=== PATIENT | female | born 1960 | race Caucasian/White ===

== ENCOUNTER 2018-06-05 15:32 | Inpatient (IN) | payer BC, OTHER ==
--- NOTE | 2018-06-05 16:19 | PDOC.FPRHP ---
- History of Present Illness Chief Complaint: passing out History of Present Illness: Pt presents from [place] [facility] with complaint of syncope x3. Pt had prodrome of dizziness and Pt was out for only 30 seconds. No one witnessed fall. Never happened before. Never had any seizure. Before syncope feels like something isn' t right and next thing she knows they are waking her up. no loss of urine or stool on episodes, no biting of tongue. Witnessed episodes did not have any convulsions. Episode lasted 30 seconds at hospital ER and third was in transit to [place]. Pt reports feeling in haze. Denies any weakness, slurred speech. Denies any numbness. Denies CP or SOB. Brain CT at outside ER showed hematoma on scalp Pt reports not drinking a lot of water yesterday. Pt reports feeling like passing out in past but never did. Of note while pt was being evaluated she had another syncope. Pt stopped talking and did not move. Her HR dropped to 40 and then to asystole on the monitor. Pt was pulse-less for 2-3 seconds and then spontaneously came to before a code was activated. ED Course: EGK- normal sinus rhythm. Cards consulted from ED and pt moved directly to laboratory coordinator for pacer placement. - Allergies/Adverse Reactions Allergies Allergy/AdvReac Type Severity Reaction Status Date / Time morphine Allergy Verified 06/05/18 16:52 Penicillins Allergy Verified 06/05/18 16:52 - Home Medications Medication Instructions Recorded Confirmed Type Aspirin [Ecotrin] 81 mg PO DAILY 06/05/18 06/05/18 History Biotin [Hard Nails] 2,500 mcg PO DAILY 06/05/18 06/05/18 History Bisoprolol Fumarate 5 mg PO HS 06/05/18 06/05/18 History Calcium Carbonate [Calcium] 600 mg PO DAILY 06/05/18 06/05/18 History Ezetimibe [Zetia] 10 mg PO DAILY 06/05/18 06/05/18 History Lisinopril/Hydrochlorothiazide 1 tablet PO DAILY 06/05/18 06/05/18 History [Lisinopril-Hctz 20-12.5 mg Tab] [place]-3/DHA/EPA/Fish Oil [Fish Oil 1 cap PO DAILY 06/05/18 06/05/18 History 1,400 mg Softgel] Omeprazole 20 mg PO DAILY 06/05/18 06/05/18 History Pravastatin Sodium 80 mg PO HS 06/05/18 06/05/18 History - History PMHx: HTN, Hyperlipidemia PSHx: tubal FHx: Brother- Diabetic Father- RICHARD Social: Denies any caffiene intake, Social drinking, Denies any smoking - Review of Systems General: denies: fever/chills, fatigue Eyes: denies: eye pain, vision changes ENT: denies: nasal congestion, rhinorrhea Respiratory: denies: cough, congestion, shortness of breath Cardiovascular: denies: chest pain, palpitation Gastrointestinal: denies: nausea, vomiting Genitourinary: denies: incontinence, dysuria Skin: denies: rashes, lesions Musculoskeletal: denies: pain, tenderness Neurological: reports: syncope. denies: numbness Psychological: denies: anxiety, depression - Vital signs BP: [146/88] HR: [101] RR: [14] Tmax: [98.5] Pox: [98]% on [ra] Wt: [83kg] - Physical Exam Constitutional: NAD, awake, alert and oriented HEENT: EOMI, conjunctiva clear, grossly normal vision, grossly normal hearing Neck: supple, trachea midline Chest: no-tender to palpation Heart: RRR, normal S1/S2 Lungs: CTAB, no respiratory distress Abdomen: soft, non-tender Musculoskeletal: normal structure, normal tone Neurological: no focal deficit, CN II-XII intact, normal sensation, DTRs 2+ Skin: no rash/lesions, good turgor Heme/Lymphatic: no unusual bruising or bleeding, no purpura Psychiatric: normal mood and affect, good judgment and insight, intact recent and remote memory FMR H&P: A/P - Problem List (1) Symptomatic bradycardia Current Visit: Yes Status: Acute Code(s): R00.1 - BRADYCARDIA, UNSPECIFIED (2) Hypertension Current Visit: Yes Status: Acute Code(s): I10 - ESSENTIAL (PRIMARY) HYPERTENSION (3) Hyperlipidemia Current Visit: Yes Status: Acute Code(s): E78.5 - HYPERLIPIDEMIA, UNSPECIFIED - Plan 57yo F presents with syncope x4 and observed severe bradycardia Symptomatic bradycardia A- Syncope was observed in room with HR decreasing below 20bpm. This does not appear to be seizure. Cards is consulted and plans for emergent transport to laboratory coordinator for placement of pacemaker. Case has been discussed with Dr. Ogden. Trops are negative in [place] and at [facility] thus far. Electrolytes wnl in [place]. P- Pacemaker placement per cards - admit to CCU - f/u on cards recs - will get ABG to r/u acidemia - will get prolactin to help rule out seizure HTN -will hold antihypertensives for now HLD -home meds Dispo: inpt, at least two midnights Diet: npo for laboratory coordinator Code: full code FMR H&P: Upper Level - Pertinent history I was present in the room with Dr. Pérez when he took pt history. I agree with his above dictation. Pt reports having syncopal episode early this morning where she was out for 30 secs. Pt had 2 more episodes, 1 at [facility] [place] and 1 en route to [facility]. Pt denied any headache vision changes, numbness or tingling. Phys Exam Neuro: CN 2-12 grossly intact. No focal neuro defecit Cardio: RRR, no mumur or gallop - Pertinent findings While in the room pt had episode where she said she felt wierd and then pt passed out. HR went into 40's, 20's and then asystole for a 3 sec period. Pt then came too and HR returned to normal sinus rhythm Reviewed pt labs drawn at [facility] ER. Did not see any abnormality on CBC, BMP. They took two trops which were normal. CT Head taken there shows no acute intracranial abnormality. - Plan Date/Time: 06/05/18 2517 IJose Luis have evaluated this patient and agree with findings/plan as outlined by internist resident. Pertinent changes/additions are listed here. Symptomatic bradycardia Syncope was observed in room with HR decreasing below 20bpm. This does not appear to be seizure. Cardiology consulted- Dr. Sanchez- plans to take pt to laboratory coordinator and use put in venous pacer. - admit to CCU. follow recs. -Pulmology- Dr. Ogden consulted- Advised to get ABG as possible blood gas abnormality could be causing adriano - will get prolactin to help rule out seizure -Pt had 2 neg trops in [place] and 1 neg here at [facility]. HTN -will hold antihypertensives for now HLD -home meds Attending Addendum - Attending Addendum Date/Time: 06/05/18 1830 I personally evaluated the patient and discussed the management with Dr. Pérez /Artur. I agree with the History, Examination, Assessment and Plan documented above with any addition or exceptions noted below. Patient here with acute onset of multiple syncopal episodes that began today with some transient pre-syncopal symptoms immediately preceding. On arrival to our ER, she had another episode associated with profound bradycardia and possibly asystole for 3-4 seconds per telemetry monitoring. Prior and post EKG revealed no abnormalities. She is being admitted for severe symptomatic bradydysrhythmia. Cardiology has been consulted and is taking patient to laboratory coordinator. She will be admitted to CCU afterwards. She otherwise has no complaints. Will control HTN and await further labs and cardiology recs. Labs at [facility] were reviewed and were overtly normal.
[2018-06-05 18:16] LABS: Lavender RECEIVED; Red RECEIVED
--- NOTE | 2018-06-05 19:33 | PRG ---
DATE OF SERVICE: 06/05/2018 I noticed on the computer list that there was a consult to Neurology on Ady. I went to see her, but she was not in her room. The nurses told me that she has been sent for pacemaker. I advised if Neurology consult is needed to consult Neurology in the a.m. Job ID: [id number]
[2018-06-05 19:54] VITALS: BMI 28.7
--- NOTE | 2018-06-05 23:56 | CON ---
DATE OF CONSULTATION: 06/05/2018 HISTORY OF PRESENT ILLNESS: Ms. Garsia is a 57-year-old female from [place]. She was getting ready to leave to go back home from [place]. She had syncope. She had complete syncope, fell and hit her head and had a knot on her head. She was evaluated in the [place] [facility] and they were getting ready to send her home when she had another episode. Apparently, she had asystole, she tells me. She subsequently has had a temporary pacemaker placed. She had multiple other episodes prior to pacemaker implantation. She reports a distant history of similar episodes, but not of this severity. She never had complete syncope. PAST MEDICAL HISTORY: Remarkable for lipid disorder and hypertension. SOCIAL HISTORY: She is a nonsmoker, nondrinker, and denies drug use. FAMILY HISTORY: Positive for diabetes. Negative for lung disease in early age. REVIEW OF SYSTEMS: 10 points otherwise negative. She is currently in paced rhythm and said she feels fine. PHYSICAL EXAMINATION: VITAL SIGNS: She is afebrile. Heart rate is 80, respiratory rate is 18, and blood pressure 140/86. HEENT: Pupils are equal. Sclerae are anicteric. NECK: Supple. LUNGS: Clear. HEART: Regular rhythm. No S3. ABDOMEN: Soft and nontender. EXTREMITIES: Without clubbing, cyanosis, or edema. LABORATORY DATA: There was no lab done here. IMPRESSION: Sinus arrest/sinus pauses, now with a temporary pacer. She has no history of prior events. She had no symptoms to suggest this was secondary to ischemia. We will follow while she is in the hospital. She is clinically stable at the time of this dictation. Critical care time is 35 minutes. Job ID: [id number] [facility]
[2018-06-06 06:07] LABS: Anion Gap 14 mmol/L (10-20); BUN (Urea Nitrogen) 13 mg/dL (9.8-20.1); Calc. Creatinine Clearance 108 mL/min (70-130); Calcium 9.8 mg/dL (7.8-10.44); Carbon Dioxide 25 mmol/L (22-29); Chloride 100 mmol/L (98-107); Estimated GFR-MDRD 80; Glucose 108 mg/dL (70-105); Potassium 3.2 mmol/L (3.5-5.1); Sodium 136 mmol/L (136-145)
--- NOTE | 2018-06-06 07:11 | PDOC.FM ---
- Subjective Subjective: Patient seen resting comfortably this morning following placement of transvenous pacer yesterday. Denies new symptoms and notes that previous symptoms have resolved. No acute events over night. - Objective MAR Reviewed: Yes Vital Signs & Weight: Vital Signs (12 hours) Temp Pulse Resp BP Pulse Ox 06/06/18 04:00 98.8 F 06/06/18 00:00 98.7 F 98 06/05/18 21:00 99.3 F 06/05/18 20:00 100 06/05/18 19:51 99.3 F 82 20 142/83 H 100 Weight Admit Weight 80.6 kg Weight 80.6 kg Most Recent Monitor Data Heart Rate from ECG 68 NIBP 131/80 NIBP BP-Mean 97 Respiration from ECG 15 SpO2 99 I&O: 06/05/18 06/06/18 06/07/18 06:59 06:59 06:59 Intake Total 0 Output Total 900 Balance -900 Result Diagrams: 06/06/18 04:29 <Mono Nava - Last Filed: 06/06/18 07:09> - Objective Vital Signs & Weight: Vital Signs (12 hours) Temp Pulse Ox 06/06/18 08:00 99 F 06/06/18 07:17 99 06/06/18 04:00 98.8 F 06/06/18 00:00 98.7 F 98 Weight Admit Weight 80.6 kg Weight 80.6 kg Most Recent Monitor Data Heart Rate from ECG 78 NIBP 166/85 NIBP BP-Mean 112 Respiration from ECG 18 SpO2 99 I&O: 06/05/18 06/06/18 06/07/18 06:59 06:59 06:59 Intake Total 0 0 Output Total 900 0 Balance -900 0 Result Diagrams: 06/06/18 04:29 <Jorge Cervantes - Last Filed: 06/06/18 09:34> Phys Exam - Physical Examination Constitutional: NAD HEENT: moist MMs, sclera anicteric Neck: no JVD Respiratory: clear to auscultation bilateral Cardiovascular: RRR, no significant murmur Gastrointestinal: soft, non-tender, no distention Musculoskeletal: no edema R femoral venous catheter in place. Non tender Neurological: moves all 4 limbs Psychiatric: A&O x 3 Skin: no rash <Mono Nava - Last Filed: 06/06/18 07:09> Dx/Plan (1) Symptomatic bradycardia Code(s): R00.1 - BRADYCARDIA, UNSPECIFIED Status: Acute (2) Hyperlipidemia Code(s): E78.5 - HYPERLIPIDEMIA, UNSPECIFIED Status: Chronic (3) Hypertension Code(s): I10 - ESSENTIAL (PRIMARY) HYPERTENSION Status: Chronic - Plan Plan: 1. Symptomatic Bradycardia - s/p transvenous pacer placement with plan to place permanent pacer - currently asymptomatic with HR in the 70s - Cards following 2. HTN - Continue home meds, controlled here 3. HLD - continue home meds Dispo: patient currently stable, will await cardiology recommendations for definitive treatment. <Mono Nava - Last Filed: 06/06/18 07:09> (1) Symptomatic bradycardia Code(s): R00.1 - BRADYCARDIA, UNSPECIFIED Status: Acute (2) Hypertension Code(s): I10 - ESSENTIAL (PRIMARY) HYPERTENSION Status: Chronic (3) Hyperlipidemia Code(s): E78.5 - HYPERLIPIDEMIA, UNSPECIFIED Status: Chronic <Jorge Cervantes - Last Filed: 06/06/18 09:34> Attending Addendum - Attending Addendum Date/Time: 06/06/18932 I personally evaluated the patient and discussed the management with Dr. Nava. I agree with the History, Examination, Assessment and Plan documented above with any addition or exceptions noted below. Patient doing well and no further episodes after transvenous pacing. Awaiting further cardiology recs and possible EP consult for permanent pacemaker implantation. Labs and vitals stable. <Jorge Cervantes - Last Filed: 06/06/18 09:34>
[2018-06-06] MEDS ORDERED: Lisinopril/Hydrochlorothiazide 20 mg/12.5 mg Tablet PO SCH ×2 (09:00→09:45)
[2018-06-06] MEDS: Dextrose 5 %-0.45 % NaCl 1,000 ML IV SCH ×2 (09:00→22:40)
--- NOTE | 2018-06-06 11:01 | CON ---
CRITICAL CARE NOTE: time 1 hour and 30 minutes. HISTORY; The patient presents for evaluation of syncopy. She has had several previous episodes where she nearly lost consciousness. Today, the patient passed out on several occasions. She was found to have prolonged pauses on telemetry monitoring. She denied any chest discomfort or dyspnea. The patient denies any PND or orthopnea. PAST MEDICAL HISTORY : Hypertension SOCIAL : Non-smoker. PHYSICAL EXAM; Well developed women in NAD. HEENT; unremarkable. NECK; No JVD LUNGS; Clear to auscultation. HEART ; normal S1 and S2 no murmurs. ABDOMEN; not distended. EXTREMITIES ; no edema. EKG; Normal sinus rhythm with prolonged sinus arrest on telemetry monitoring. IMPRESSION; Syncopy due to prolonged sinus arrest. PLAN; Emergent temporary pacemaker placement. Job ID: [id number] [facility]
[2018-06-06] MEDS ORDERED: CEFAZOLIN 2 GM/50 ML BAG ONE (12:18)
[2018-06-06] MEDS ORDERED: Lidocaine 1% (PF) 30 ML VIAL ONE (12:18)
[2018-06-06] MEDS ORDERED: Gentamicin 80 MG/2 ML VIAL ONE (12:18)
[2018-06-06] MEDS ORDERED: CEFAZOLIN 1 GM VIAL ONE (12:18)
--- NOTE | 2018-06-06 12:22 | PRG ---
DATE OF SERVICE: 06/06/2018 SUBJECTIVE: Yaima Garsia is tentatively on schedule for permanent pacemaker today. She had no events overnight. Hopefully, she will be able to head home this evening OBJECTIVE: VITAL SIGNS: Heart rate is 82, blood pressure 130/76, and respiratory rate 17. GENERAL: She is lying flat in bed. She is in no distress. LUNGS: Clear. HEART: Regular rhythm. ABDOMEN: Soft. LABORATORY DATA: Electrolytes are normal except for potassium of 3.2 today. IMPRESSION: Status post sinus arrest with syncope. PLAN: Pacemaker. Hopefully, she will go home this evening. We will sign off. Is having no acute respiratory issues. Job ID: [id number]
[2018-06-06] MEDS ORDERED: Iopamidol 370 76% 50 ML VIAL FS ONE (12:52)
[2018-06-06] MEDS ORDERED: Fentanyl 100 MCG/2 ML VIAL ONE (13:04)
[2018-06-06] MEDS ORDERED: Midazolam HCl 2 mg/2 ml Vial ONE (13:05)
[2018-06-06] MEDS ORDERED: HYDROcodone/Acetaminophen 5/325 mg Tablet PO PRN ×2 (16:00)
[2018-06-06] MEDS ORDERED: Acetaminophen/Codeine 30-300mg Tablet PO PRN ×2 (16:00)
--- NOTE | 2018-06-06 16:33 | RAD ---
SUPINE FRONTAL CHEST RADIOGRAPH: DATE: 06/06/2018. History Pacemaker placement. FINDINGS: Supine imaging is provided, limiting assessment for pneumothorax and pleural fluid. Lungs appear emma ar. Dual-lead transvenous pacing device present, inserted via left subclavian approach, with leads o verlying the region of the right atrium and the right ventricle. IMPRESSION: Dual-lead transvenous pacing device as detailed above. POS: [facility]
[2018-06-06] MEDS ORDERED: Ondansetron PF 4 MG/2 ML Vial IVP PRN (18:17)
--- NOTE | 2018-06-06 19:00 | OP ---
DATE OF PROCEDURE: 06/06/2018 INDICATIONS FOR PROCEDURE: Sinus node dysfunction irreversible with symptoms of syncope recurrence. No reversible cause. MEDICATIONS: Versed and fentanyl to effect. COMPLICATIONS: None. Ancef 2 g IV piggyback provided. DESCRIPTION OF PROCEDURE: After an informed consent was obtained, the patient was brought to the electrophysiology laboratory. The patient was prepped and draped in the usual sterile fashion. A venogram demonstrates patency of the subclavian system. Using lidocaine, skin overlying the left infraclavicular fossa was locally anesthetized and using a modified Seldinger technique with the first rib approach, central access was achieved on 2 occasions with the advancement of J-wires in the central circulation. Using #15 blade, a skin incision was made and using a combination of sharp, blunt, and Bovie dissection, a pacemaker pocket was formed and the J-wires were brought to the base of the pocket. Using a 7-Fijian dilator sheath, central access was achieved and both leads were placed directly in the central circulation. The sheaths were removed. The ventricular lead was advanced to the outflow tract and brought toward the right ventricular apical region, then moved up the septum so it is a more of apical septal location. Adequate sensing and pacing parameters were noted and the lead was secured with silk ties. The right atrial lead was placed in right atrial appendage. Adequate sensing and pacing parameters were noted. The leads were secured with silk ties. The pocket was copiously irrigated. The temporary ventricular lead was removed under fluoroscopic guidance and then the pocket was copiously irrigated. The device was attached. The device was placed in the pocket and secured. The pocket was re-irrigated and closed with 2 layers of Vicryl and skin adhesive. The patient tolerated the procedure well. FINDINGS: The device implanted is the [employer] Adali XT DR, serial #[id number]. The atrial lead is 5076-45, serial #[id number], and the ventricular lead is 5076-52 serial #[id number]. The atrial electrogram was 7.8 mV, impedance of 739, threshold 0.6 at 0.5. The ventricular electrogram is 10 mV, impedance of 1225, threshold 0.8 at 0.5. Device will be programed in the MVP mode, lower rate of 60, upper rate of 140 beats per minute. Mode switch was available. No rate responsive pacing is required today. No complication seen. ESTIMATED BLOOD LOSS: Less than 5 mL. IMPRESSION: Successful dual-chamber permanent pacemaker for symptomatic sinus node dysfunction with repetitive pauses that are nonreversible and associated with syncope. RECOMMENDATIONS: Anticipate discharge in the morning after pacemaker evaluation. Follow up in [address] French Bahena in [place]. The patient has been given contact information. Job ID: [id number]
[2018-06-06] MEDS ORDERED: Atorvastatin Calcium 20 MG TAB PO SCH (21:00)
[2018-06-06] MEDS ORDERED: Bisoprolol Fumarate 5 MG TAB PO SCH (21:00)
[2018-06-06] MEDS: Cephalexin 250 MG CAP PO SCH (22:00)
[2018-06-07] MEDS ORDERED: Sodium Chloride 0.9% 1,000 ML IV SCH ×2 (07:00→12:00)
--- NOTE | 2018-06-07 07:48 | PDOC.FM ---
- Subjective Subjective: Patient seen sitting up in chair this morning in no acute distress. She complains of nausea following her procedure yesterday. Denies chest pain or continued syncopal episodes. No acute events over night. - Objective MAR Reviewed: Yes Vital Signs & Weight: Vital Signs (12 hours) Temp Pulse Ox 06/07/18 04:00 98.0 F 06/07/18 00:00 97.9 F 06/06/18 20:00 93 L Weight Admit Weight 80.6 kg Weight 80.6 kg Most Recent Monitor Data Heart Rate from ECG 120 NIBP 95/70 NIBP BP-Mean 78 Respiration from ECG 13 SpO2 96 I&O: 06/06/18 06/07/18 06/08/18 06:59 06:59 06:59 Intake Total 0 1164 Output Total 900 950 Balance -900 214 Result Diagrams: 06/06/18 04:29 <Mono Nava - Last Filed: 06/07/18 07:46> - Objective Vital Signs & Weight: Vital Signs (12 hours) Temp Pulse BP 06/07/18 09:42 82 114/66 06/07/18 04:00 98.0 F 06/07/18 00:00 97.9 F Weight Admit Weight 80.6 kg Weight 80.6 kg Most Recent Monitor Data Heart Rate from ECG 97 NIBP 125/80 NIBP BP-Mean 95 Respiration from ECG 16 SpO2 96 I&O: 06/06/18 06/07/18 06/08/18 06:59 06:59 06:59 Intake Total 0 1164 Output Total 900 950 Balance -900 214 Result Diagrams: 06/06/18 04:29 <Jorge Cervantes - Last Filed: 06/07/18 09:46> Phys Exam - Physical Examination Constitutional: NAD HEENT: moist MMs Neck: no JVD Respiratory: clear to auscultation bilateral Cardiovascular: RRR, no significant murmur Gastrointestinal: soft, non-tender, no distention Musculoskeletal: no edema Neurological: moves all 4 limbs Psychiatric: normal affect, A&O x 3 Deviation from normal: Incision on L upper chest clean and dry. Mild TTP and erythema <Mono Nava - Last Filed: 06/07/18 07:46> Dx/Plan (1) Symptomatic bradycardia Code(s): R00.1 - BRADYCARDIA, UNSPECIFIED Status: Resolved (2) Hyperlipidemia Code(s): E78.5 - HYPERLIPIDEMIA, UNSPECIFIED Status: Chronic (3) Hypertension Code(s): I10 - ESSENTIAL (PRIMARY) HYPERTENSION Status: Chronic - Plan Plan: 1. Symptomatic Bradycardia - s/p permanent dual chamber pacemaker placement on 06/06 - currently asymptomatic with HR in the 90-100 range - Cards and EP following 2. HTN - Continue home meds, controlled here 3. HLD - continue home meds Dispo: patient currently stable, will discharge pending recommendation from EP and cardiology <Mono Nava - Last Filed: 06/07/18 07:46> (1) Symptomatic bradycardia Code(s): R00.1 - BRADYCARDIA, UNSPECIFIED Status: Resolved (2) Hypertension Code(s): I10 - ESSENTIAL (PRIMARY) HYPERTENSION Status: Chronic (3) Hyperlipidemia Code(s): E78.5 - HYPERLIPIDEMIA, UNSPECIFIED Status: Chronic <Jorge Cervantes - Last Filed: 06/07/18 09:46> Attending Addendum - Attending Addendum Date/Time: 06/07/18 0945 I personally evaluated the patient and discussed the management with Dr. Nava. I agree with the History, Examination, Assessment and Plan documented above with any addition or exceptions noted below. Patient stable from cardiac standpoint. Complains of some nausea overnight and has some mildly low BP with headache. Our team not notified overnight about her low BP or need for trendelenburg positioning by nursing staff. Will give bolus of IVF and reassess. Awaiting further cardiology recs. Possible d/c later today if feeling ok. <Jorge Cervantes - Last Filed: 06/07/18 09:46>
[2018-06-07] MEDS ORDERED: Ezetimibe 10 MG TAB PO SCH (09:00)
[2018-06-07] MEDS ORDERED: Aspirin 81 mg Enteric Coated Tablet PO SCH (09:00)
[2018-06-07] MEDS ORDERED: Lisinopril/Hydrochlorothiazide 20 mg/12.5 mg Tablet PO SCH ×2 (09:00)
[2018-06-07] MEDS: Cephalexin 250 MG CAP PO SCH ×2 (09:42→15:30)
[2018-06-07 09:43] VITALS: BP 114/66
[2018-06-07] MEDS: Dextrose 5 %-0.45 % NaCl 1,000 ML IV SCH (11:56)
[2018-06-07 12:43] VITALS: TEMP 98.6
[2018-06-07 12:53] LABS: Anion Gap 14 mmol/L (10-20); BUN (Urea Nitrogen) 14 mg/dL (9.8-20.1); Calc. Creatinine Clearance 105 mL/min (70-130); Carbon Dioxide 24 mmol/L (22-29); Chloride 101 mmol/L (98-107); Estimated GFR-MDRD 78; Glucose 119 mg/dL (70-105); Potassium 3.2 mmol/L (3.5-5.1); Sodium 136 mmol/L (136-145)
[2018-06-07 13:30] LABS: Hemoglobin 12.9 g/dL (12.0-16.0); Mean Corpuscular HGB CONC 33.5 g/dL (32.0-36.0); Mean Corpuscular Hemoglobin 31.1 pg (27.0-31.0); Mean Corpuscular Volume 92.9 fL (78.0-98.0); Mean Platelet Volume 8.3 fL (7.4-10.4); Platelet Count 200 thou/uL (130-400); RBC Distribution Width 11.1 % (11.5-14.5); Red Blood Cell (RBC) Count 4.16 mill/uL (4.20-5.40); White Blood Cell (WBC) Count 7.6 thou/uL (4.8-10.8)
[2018-06-07 13:31] LABS: Band 6 % (5-11); Lymphocytes 20 % (21-51); MDiff Complete? YES; Monocytes 2 % (0-10); Neutrophil 72 % (42-75); PLT Morphology Comment Appears Adequate; RBC Morphology Normal
--- NOTE | 2018-06-09 12:25 | DIS ---
DATE OF ADMISSION: 06/05/2018 DATE OF DISCHARGE: 06/07/2018 ADMITTING/DISCHARGE ATTENDING: Jorge Cervantes MD CONSULTS: Pulmonology, Griffin Ogden MD; Cardiology, Juan Sanchez MD; and Electrophysiology, French Valdivia MD PROCEDURES: Temporary transvenous pacemaker on 06/05/2018 and permanent pacemaker on 06/05/2018. Echocardiogram on 06/06/2018 with EF of 50% to 55% , left ventricular size normal, structurally normal mitral valve, structurally normal aortic valve, and mild tricuspid regurgitation. Chest x-ray on 06/06/2018 shows dual-lead transvenous pacing device in left subclavian. ADMITTING DIAGNOSIS: Symptomatic bradycardia. SECONDARY DIAGNOSES: Include, 1. Syncopal episode. 2. Hypertension. 3. Hyperlipidemia. DISCHARGE MEDICATIONS: 1. Omeprazole 20 mg p.o. daily. 2. Aspirin 81 mg p.o. daily. 3. Pravastatin 80 mg p.o. at bedtime. 4. Lisinopril/hydrochlorothiazide 20/12.5 mg one p.o. daily. 5. Bisoprolol 5 mg p.o. at bedtime. 6. Fish oil 1400 mg softgel 1capsule p.o. daily. 7. Zetia 10 mg p.o. daily. 8. Calcium carbonate 600 mg p.o. daily. 9. Biotin 2500 mcg p.o. daily. 10. Keflex 250 mg p.o. t.i.d. x4 days. HOSPITAL SUMMARY: This is a 57-year-old female, who presented to the emergency room after a syncopal episode at home with repeating syncopal episodes in transport with EMS. There had been no prior history of similar episodes. It was noted by EMS that while there was initial concern for seizure-like activity, there was no noted convulsions and is possibly an absence type seizure. Upon arrival to the emergency room, EKG was normal sinus and prolactin was 8.32. There were no other significant lab abnormalities at time of admission or throughout hospitalization except mild hypokalemia . While being interviewed during history and physical, the patient was noted to become bradycardiac, starting at 6 beats per minute and 20 beats per minute, approximately 30-second period of asystole with not requiring . 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 The patient immediately had a transvenous pacer placed followed by a permanent pacer the following day. No complications with the procedure and observation postprocedure was uncomplicated. The patient was sent home with followup with primary care . Additionally, the patient was sent home with additional 4 days of prophylactic antibiotics due to the placement of the pacemaker. DISCHARGE INSTRUCTIONS: LOCATION: Home. FOLLOWUP: Follow up with PCP within 7 days, follow up with Dr. Juan Sanchez within 2 to 3 weeks. ACTIVITY: As tolerated. DIET: Heart healthy. Job ID: [id number]
--- NOTE | 2018-06-10 12:11 | CON ---
DATE OF CONSULTATION: 06/06/2018 ELECTROPHYSIOLOGY CONSULTATION NOTE REASON FOR CONSULTATION: Syncope. HISTORY OF PRESENT ILLNESS: Yaima Garsia is a very pleasant lady, who has a history of recurring episodes of some lightheadedness, never reached the significance of requiring a hospital evaluation or medical consultation. She is visiting from the [facility] here in [facility] and she had a sudden syncopal attack. She was apparently leaning forward and then actually passed out, fell forward to the floor. She was ultimately brought to the hospital and ambulatory monitoring was noted to have pauses that would last up to 14 seconds at a time. She has no history of other structural heart disease. No history of left ventricular systolic dysfunction. No TIA, strokes, or other neurologic symptoms. She denies any chest pain syndrome. PAST MEDICAL HISTORY: Unremarkable from a cardiovascular standpoint. Echocardiogram today shows well-preserved left ventricular systolic function. FAMILY HISTORY: Negative for idiopathic cardiomyopathy or sudden cardiac . SOCIAL HISTORY: No excessive alcohol, tobacco, or illicit drug use. REVIEW OF SYSTEMS: No fevers, chills, night sweats. No change in vision or hearing. No TIA or strokes. No chest pain, abdominal pain, melena, or hematochezia. No frequency or dysuria. No significant arthritis, arthralgias, joint swelling, or gout. No depression or anxiety. No autoimmune disease. PHYSICAL EXAMINATION: GENERAL: She is a well-developed and well-nourished lady, in no acute distress, in bed sitting comfortably. VITAL SIGNS: Blood pressure is in the 120/70 range, heart rate is currently 60 and regular, and respirations are 14. HEENT: Normocephalic and atraumatic. Pupils are equally round. Extraocular muscles are intact. Sclerae anicteric. Conjunctivae clear. Mucous membranes pink and moist. Dentition adequate. NECK: Supple. There is no jugular venous distension. Carotids have good upstroke. No adenopathy or thyromegaly. CHEST: Clear. Respiratory effort is normal. CARDIAC: She has a regular rate. Nondisplaced PMI. No heaves, gallops, or rubs. ABDOMEN: Soft, benign, and nontender. EXTREMITIES: Warm and well perfused without clubbing, cyanosis, or edema. LABORATORY DATA: Telemetry monitoring shows pauses to at least 10 seconds seen on monitor strips. These were unprovoked. She is not on any medications that would cause a sinus node dysfunction or AV block. IMPRESSION: Severe symptomatic and irreversible sinus node dysfunction resulting in syncope and collapse with documentation of sinus arrest. RECOMMENDATIONS: In light of these findings and the recurrence without provocation and no reversible cause, it should be best served by placement of a dual-chamber permanent pacemaker. Rationale for dual-chamber pacing is this is somewhat vagally mediated, although, there is no slowing or AV erika block demonstrated with these events. There is still nevertheless the possibility of having AV block as a mechanism even if atrial pacing is provided. At the same time, severe sinus node dysfunction may be a harbinger for more important sinus node disease to ultimately occur and thus, atrially based pacing would be the preferred mechanism. Dual-chamber device is recommended. Indications, risks, benefits, expectations, and alternatives are discussed. She is willing to go forward with it either late today or this afternoon. Echocardiogram was done on her while I was there, which I reviewed and discussed with Dr. Sanchez demonstrates normal function. Job ID: [id number]
== END 2018-06-07 16:28 | disposition home or self-care (01) | DRG 229 ==
LOC: ERS 15:32 → IMCU/EMU 18:28 → OBSVTOIN 18:28 → CCU 19:25
PROVIDERS: ADMIT Family Medicine; ATTEND Family Medicine
PROC: 5A1223Z Performance of Cardiac Pacing, Continuous (ICD-10-PCS; 2018-06-05)
PROC: 02PA3NZ Removal of Intracardiac Pacemaker from Heart, Percutaneous Approach (ICD-10-PCS; principal; 2018-06-06)
PROC: 0JH606Z Insertion of Pacemaker, Dual Chamber into Chest Subcutaneous Tissue and Fascia, Open Approach (ICD-10-PCS; 2018-06-06)
PROC: 02H63JZ Insertion of Pacemaker Lead into Right Atrium, Percutaneous Approach (ICD-10-PCS; 2018-06-06)
PROC: 02HK3JZ Insertion of Pacemaker Lead into Right Ventricle, Percutaneous Approach (ICD-10-PCS; 2018-06-06)
DX: I49.5 Sick sinus syndrome (principal); I10 Essential (primary) hypertension; E78.5 Hyperlipidemia, unspecified; Z88.5 Allergy status to narcotic agent; Z88.0 Allergy status to penicillin; Z79.82 Long term (current) use of aspirin
CPT/HCPCS: 33210; 33211; 36415; 71045; 75820; 80048; 84146; 84484; 85007; 85027; 93005; 93010; 93306; 99152; C1769; C1785; C1898; J0690; J1580; J1644; J2001; J2250; J2405; J3010